=== PATIENT | male | born 1960 | race Caucasian/White ===

== ENCOUNTER → 2022-12-31 13:25 | Outpatient (CLI) | payer OTHER, SELFPAY ==
--- NOTE | ~2022-12-31 | MR_ITS ---
MRI of the left elbow CLINICAL HISTORY: Pain TECHNIQUE: Proton-density and proton-density fat-sat imaging was performed in the axial, coronal, and sagittal planes. FINDINGS: Ulnar collateral ligament is intact. Radial collateral ligament and the lateral ulnar colla teral ligament are intact. There is moderate tendinosis at the common extensor tendon origin at the l ateral epicondyle. Common flexor tendon origin is unremarkable. Bone marrow signals are unremarkable. No osseous or articular abnormality of the elbow is identified. No joint effusion. Brachialis, biceps, and triceps tendons are intact. Visualized musculature demonstrates normal signal intensity. Ulnar nerve appears enlarged and hyperintense proximal to and within the cubital tunnel. No soft tissue mass or fluid collection evident. IMPRESSION: Moderate tendinosis of the common extensor tendon origin at the lateral epicondyle. Ulnar nerve appears relatively enlarged and hyperintense proximal to and within the cubital tunnel. C orrelate for ulnar neuropathy. Reviewed, dictated and finalized at location . IMPRESSION: Moderate tendinosis of the common extensor tendon origin at the lateral epicond yle. Ulnar nerve appears relatively enlarged and hyperintense proximal to and within the cubital tunnel. Correlate for ulnar neuropathy.
== END ==
PROVIDERS: PCP Orthopaedic Surgery; Visit Provider Orthopaedic Surgery
DX: M25.522 Pain in left elbow (principal)
CPT/HCPCS: 73221

== ENCOUNTER 2024-03-19 12:21 | Outpatient (CLI) | payer MEDICARE, OTHER, SELFPAY ==
--- NOTE | ~2024-03-19 | MR_ITS ---
Procedure: MR thoracic spine wo/w con Ordering provider: Lindsay Abrams, History: . Abn MRI,thoracic spine . Comparison: None. Technique: MRI thoracic spine with and without contrast. FINDINGS: SPINAL CORD: Normal. No abnormal enhancement of the spinal cord or spinal canal. The cord ends at the level of L1. VERTEBRAL BODIES: Normal height and alignment. No compression fracture. Normal marrow signal. No abno rmal marrow enhancement. Meningioma in T11. DISK SPACES: Endplate changes are seen at the levels of T11 -T12, inferior endplate of T9 and endplat es of T7 -T8. Left perineural cyst at the level of T2-T3, T3-T4 and T11-T12. STENOSIS: None. PARASPINOUS SOFT TISSUES: Normal. No abnormal enhancement of the paraspinous soft tissues. IMPRESSION: No compression fracture or significant stenosis of the thoracic spine. No abnormal enhancement. Multilevel degenerative disc disease. Multilevel perineural cysts. Reviewed, dictated and finalized at location A.
== END 2024-03-19 12:22 | disposition home or self-care (01) ==
PROVIDERS: PCP Family Medicine; Visit Provider Family Medicine
DX: R93.7 Abnormal findings on diagnostic imaging of other parts of musculoskeletal system (principal); R20.2 Paresthesia of skin; M51.24 Other intervertebral disc displacement, thoracic region
CPT/HCPCS: 72157; A9577